=== PATIENT | female | born 1975 | race Two or more races ===

== ENCOUNTER 2018-05-14 20:08 | Emergency (ER) | payer MEDICAID, OTHER ==
[2018-05-14] MEDS: KETOROLAC 60 MG INJ IM ×2 (23:05→23:11)
[2018-05-14] MEDS: IBUPROFEN 600 MG TAB PO (23:11)
== END 2018-05-14 23:22 | disposition home or self-care (01) ==
LOC: FTE 20:08
DX: N64.4 Mastodynia (principal)
CPT/HCPCS: 81025; 99283